=== PATIENT | female | born 1955 | race Caucasian/White ===

== ENCOUNTER 2016-06-09 11:57 | Emergency (ER) | payer BC ==
[~2016-06-09] VITALS: Ht 170.2 cm; Wt 101.9 kg
[2016-06-09 12:03] VITALS: BP 152/90; PULSE 79; RESP 14; TEMP 98; O2SAT 96
[2016-06-09] MEDS ORDERED: estrogen patch TOPICAL (12:20)
[2016-06-09] MEDS ORDERED: DILT60TA PO (12:20)
--- NOTE | 2016-06-09 12:27 | PD ---
HPI Chief Complaint: Pain: Acute or Chronic Time Seen by Provider: 12:13 Travel History International Travel<30 days: No Contact w/Intl Traveler<30days: No Traveled to known affect area: No History of Present Illness HPI This is a 60-year-old female who presents to the emergency department with swelling of her left leg for 5 days, constant, moderate severity, associated with pain around her knee and the posterior aspect of her thigh, worse with walking, improved with rest. It has not improved despite elevation and rest. She has a history of arthritis in the right knee. She did have a vein removed from her left leg back in January. She came down here from [place] and is planning on returning home but was concerned about traveling in the car without getting her leg checked out. She denies any chest pain or shortness of breath. PFSH Past Medical History Narrative Medical osteoarthritis, hypertension Social History Tobacco Use: No Allergies-Medications (Allergen,Severity, Reaction): Coded Allergies: Amoxicillin (Verified Allergy, Severe, Rash, 06/09/16) Ciprofloxacin (Verified Allergy, Severe, Rash, 06/09/16) Codeine (Verified Allergy, Severe, Chest Pain, 06/09/16) Dilaudid (Verified Allergy, Severe, Chest Pain, 06/09/16) Morphine (Verified Allergy, Severe, Arrhythmias, 06/09/16) Nonsteroidal Anti-Inflammatory Agts (Verified Allergy, Severe, Chest Pain , 06/09/16) Penicillin (Verified Allergy, Severe, Rash, 06/09/16) Pravastatin (Verified Allergy, Severe, Headache, 06/09/16) Reglan (Verified Allergy, Severe, Rash, 06/09/16) Toprol Xl (Verified Allergy, Severe, Chest Pain, 06/09/16) Vicodin (Verified Allergy, Severe, Chest Pain, 06/09/16) Uncoded Allergies: STEROIDS (Allergy, Severe, Chest Pain, 06/09/16) Reported Meds & Prescriptions Reported Meds & Active Scripts Active Reported [estrogen patch] 1 TOPICAL WEEKLY Diltiazem (Diltiazem HCl) 60 Mg Tab 60 Mg PO BID Review of Systems Except as stated in HPI: all other systems reviewed are Neg Physical Exam Narrative GENERAL:Well appearing, no acute distress SKIN: Focused skin assessment warm and dry. HEAD: Atraumatic. Normocephalic. EYES: Pupils equal and round. No injection or drainage. ENT: Moist mucous membranes NECK: Trachea midline. CARDIOVASCULAR: Regular rate and rhythm. No murmur appreciated. 2+ left dorsalis pedis pulse with normal capillary refill. RESPIRATORY: Clear to auscultation. Breath sounds equal bilaterally. GASTROINTESTINAL: Abdomen soft, non-tender, nondistended. MUSCULOSKELETAL: Swelling of the left lower extremity from the thigh down to the calf, some pain with range of motion of the left knee but full painless passive range of motion, some crepitus over the left knee with movement NEUROLOGICAL: Awake and alert. No obvious cranial nerve deficits. Moving all extremities. PSYCHIATRIC: Appropriate mood and affect; insight and judgment normal. Data Data Last Documented VS Vital Signs Date Time Temp Pulse Resp B/P Pulse Ox O2 Delivery O2 Flow Rate FiO2 06/09/16 12:03 98.0 79 14 152/90 96 Orders Us Leg Venous Doppler (06/09/16 ) Knee, Complete (4vws) (06/09/16 ) [facility] Medical Decision Making Medical Screen Exam Complete: Yes Emergency Medical Condition: Yes Interpretation(s) Afebrile, no tachycardia, mild hypertension Last 24 hours Impressions Lower Extremity Ultrasound 06/09/16 0000 Signed Impressions: Service Date/Time: Thursday, June 09, 2016 13:17 - CONCLUSION: Negative for deep venous thrombosis. 5 cm popliteal cyst. Seymour Haney MD FACR Knee X-Ray 06/09/16 0000 Signed Impressions: Service Date/Time: Thursday, June 09, 2016 12:28 - CONCLUSION: Limited exam because of body habitus, negative for acute process. Seymour Haney MD FACR Differential Diagnosis DVT, Devi cyst,arthritis Narrative Course This is a 60-year-old female who presents to the emergency department with swelling of the right lower extremity that's been going on for almost a week. Ultrasound was obtained which demonstrates a 5 cm popliteal cyst but no DVT. X- ray was negative for acute injury. I suspect the patient's symptoms are secondary to her Devi cyst. I instructed her to follow-up with orthopedics. She'll be discharged on tramadol and lidocaine patches. Diagnosis Primary Impression: Devi's cyst of knee Qualified Code: M71.22 - Devi's cyst of knee, left Patient Instructions: General Instructions Additional Instructions: If you develop severe chest pain, shortness of breath, sweating, lightheadedness , dizziness or difficulty breathing return to the emergency department immediately. Follow up with your orthopedic surgeon once you return home. Med/Other Pt SpecificInfo: Prescription(s) given Scripts Lidocaine Patch 12 HR 5 % Patch1 Patch TOPICAL DAILY PRN (PAIN) #1 BOX Ref 0 Remove patch after 12 hours Prov:Jana Painter MD 06/09/16 Tramadol 50 Mg Tab50 Mg PO Q6H PRN (PAIN) #10 TAB Prov:Jana Painter MD 06/09/16 Disposition: 01 DISCHARGE HOME Condition: Stable Jana Painter MD Jun 09, 2016 12:27
--- NOTE | 2016-06-09 12:54 | RADHPO ---
EXAM DATE/TIME: 06/09/2016 12:28 [facility] COMPARISON: No previous studies available for comparison. INDICATIONS : Left knee pain and swelling for five days. No known injury. MEDICAL HISTORY : None. SURGICAL HISTORY : None. ENCOUNTER: Initial ACUITY: 4 - 6 days PAIN SCORE: 5/10 LOCATION: Left knee. FINDINGS: Four view examination of the left knee demonstrates no evidence of fracture or dislocation. Bony min eralization is normal. The articular surfaces are intact. The suprapatellar soft tissues have a nor mal configuration. CONCLUSION: Limited exam because of body habitus, negative for acute process. Seymour Haney MD FACR on June 09, 2016 at 12:52 Board Certified Radiologist. This report was verified electronically.
--- NOTE | 2016-06-09 13:51 | RADHPO ---
EXAM DATE/TIME: 06/09/2016 13:17 [facility] COMPARISON: No previous studies available for comparison. INDICATIONS : Left leg swelling. MEDICAL HISTORY : Left leg pain. SURGICAL HISTORY : Hysterectomy. Left leg varicose vein repair. ENCOUNTER: Initial ACUITY: 4 - 6 days PAIN SCORE: 6/10 LOCATION: Left TECHNIQUE: Venous ultrasound of the leg was performed from the inguinal ligament to the proximal calf. Real-osman e, color Doppler and spectral tracing, compression and augmentation techniques were used. FINDINGS: There is normal compressibility of the deep venous system from the inguinal region to the proximal ca lf. No echogenic clot is seen in the lumen of the common femoral, femoral, popliteal, and posterior tibial veins. There is a normal response of the venous system to proximal and distal augmentation an d respiration. CONCLUSION: Negative for deep venous thrombosis. 5 cm popliteal cyst. Seymour Haney MD FACR on June 09, 2016 at 13:48 Board Certified Radiologist. This report was verified electronically.
[2016-06-09] MEDS ORDERED: TRAM50TA PO (14:03)
[2016-06-09] MEDS ORDERED: LIDO1PAD52 TOPICAL (14:03)
== END 2016-06-09 14:26 | disposition home or self-care (01) ==
LOC: PHED 11:57
DX: M71.22 Synovial cyst of popliteal space [Baker], left knee (principal)
CPT/HCPCS: 73564; 93971